=== PATIENT | female | born 2000 ===

== ENCOUNTER 2022-06-06 00:08 | Inpatient (IN) | payer MEDICAID ==
[2022-06-06] MEDS ORDERED: Terbutaline 1 MG/ML SDV SUBCUT PRN (00:34)
[2022-06-06] MEDS ORDERED: Sodium Chloride 0.9% 20 ML SDV IV PRN (00:36)
[2022-06-06] MEDS ORDERED: Water For Irrigation,Sterile 1,000 ML Container IRR PRN (00:36)
[2022-06-06] MEDS ORDERED: Sodium Chloride 0.9% 2.5 ML Syringe FLUSH PRN (00:36)
[2022-06-06] MEDS ORDERED: Lidocaine 1% 50 ML MDV INJECT PRN (00:36)
[2022-06-06] MEDS ORDERED: Sodium Chloride 0.9% 10 ML Syringe FLUSH PRN (00:36)
[2022-06-06] MEDS ORDERED: Methylergonovine 0.2 MG/1 ML Amp IM PRN (00:36)
[2022-06-06] MEDS ORDERED: Misoprostol 200 MCG Tab PO PRN (00:36)
[2022-06-06] MEDS ORDERED: Carboprost Tromethamine 250 MCG/1 ML Amp IM PRN (00:36)
[2022-06-06] MEDS ORDERED: Tranexamic Acid 1,000 MG in Sodium Chloride 0.9% 100 ML IV PRN (00:36)
[2022-06-06] MEDS: Lactated Ringers 1,000 ML IV SCH ×3 (00:44→18:55)
[2022-06-06] MEDS ORDERED: Oxytocin/0.9 % Sodium Chloride 30 UNIT/500 ML BAG IV SCH ×2 (00:45)
[2022-06-06] MEDS ORDERED: Misoprostol 25 MCG (1/4 of 100 MCG) Tab VAG PRN ×2 (01:00→05:00)
[2022-06-06] MEDS ORDERED: Misoprostol 25 MCG (1/4 of 100 MCG) Tab PO PRN (02:12)
[2022-06-06] MEDS ORDERED: ePHEDrine 50 MG/ML SDV IVPUSH PRN ×2 (07:42)
[2022-06-06] MEDS ORDERED: Ropivacaine HCl/PF 400 MG in Premix Bag 1 BAG EPIDUR SCH (07:45)
[2022-06-06] MEDS ORDERED: Phenylephrine HCl In 0.9% NaCl 1 MG/10 ML Vial IVPUSH SCH (07:45)
[2022-06-06] MEDS: Butorphanol 1 MG/ML SDV IVPUSH PRN ×3 (13:00→17:40)
[2022-06-06] MEDS ORDERED: Lidocaine 2% with EPINEPHrine 1:200,000 20 ML SDV ONE (18:42)
[2022-06-06] MEDS: Phenylephrine HCl In 0.9% NaCl 1 MG/10 ML Vial IVPUSH PRN ×2 (23:06→23:26)
[2022-06-07] MEDS: Lactated Ringers 1,000 ML IV SCH ×3 (01:25→14:47)
[2022-06-07] MEDS ORDERED: Witch Hazel Medicated Pads 40/Jar TOP PRN (15:30)
[2022-06-07] MEDS ORDERED: Acetaminophen 500 MG Tab PO PRN (15:30)
[2022-06-07] MEDS ORDERED: Benzocaine/Menthol 20%-0.5% Spray 78 GM Cannister TOP PRN (15:30)
[2022-06-07] MEDS ORDERED: Lanolin 100% Cream 7 GM Tube TOP PRN (15:30)
[2022-06-07] MEDS ORDERED: Ibuprofen 400 MG Tab PO PRN (15:30)
[2022-06-07] MEDS ORDERED: Bisacodyl 10 MG Supp RECTAL PRN (15:30)
[2022-06-07] MEDS ORDERED: Docusate Sodium 100 MG Cap PO PRN (15:30)
[2022-06-07] MEDS: Ibuprofen 800 MG Tab PO PRN (17:59)
[2022-06-07] MEDS: Acetaminophen 500 MG Tab PO PRN (18:00)
[2022-06-08] MEDS: Ibuprofen 800 MG Tab PO PRN (07:48)
[2022-06-08] MEDS: Acetaminophen 500 MG Tab PO PRN (07:48)
== END 2022-06-08 17:40 | disposition home or self-care (01) | DRG 807 ==
LOC: MW.OBCHECK 00:08 → MW.OB 00:10 → MW.OBCHECK 00:34 → OBSVTOIN 14:52 → MW.OB 06-07 18:01
PROVIDERS: ADMIT Obstetrics & Gynecology; ATTEND Obstetrics & Gynecology Obstetrics
PROC: 10D07Z6 Extraction of Products of Conception, Vacuum, Via Natural or Artificial Opening (ICD-10-PCS; principal; 2022-06-07)
PROC: 0HQ9XZZ Repair Perineum Skin, External Approach (ICD-10-PCS; 2022-06-07)
PROC: 3E0P7VZ Introduction of Hormone into Female Reproductive, Via Natural or Artificial Opening (ICD-10-PCS; 2022-06-07)
PROC: 3E0R3BZ Introduction of Anesthetic Agent into Spinal Canal, Percutaneous Approach (ICD-10-PCS; 2022-06-07)
PROC: 00HU33Z Insertion of Infusion Device into Spinal Canal, Percutaneous Approach (ICD-10-PCS; 2022-06-07)
DX: O48.0 Post-term pregnancy (principal); Z37.0 Single live birth; O99.214 Obesity complicating childbirth; O70.0 First degree perineal laceration during delivery; Z3A.40 40 weeks gestation of pregnancy; Z20.822 Contact with and (suspected) exposure to COVID-19
CPT/HCPCS: 36415; 51701; 59025; 59409; 84112; 85014; 85018; 85027; 86592; 86850; 86900; 86901; A9270-GY; J0595; J2590; J2795; J3490; J7120; U0002